=== PATIENT | male | born 1975 ===

== ENCOUNTER 2020-06-15 10:59 | Outpatient (NON) | payer OTHER, SELFPAY ==
[2020-06-16 22:35] LABS: SARS-CoV-2 RNA PCR Positive
== END 2020-06-15 11:00 ==
LOC: ANHCOVIDDT 11:02
PROVIDERS: Visit Provider Student in an Organized Health Care Education/Training Program
DX: U07.1 COVID-19 (principal)
CPT/HCPCS: 87635; C9803; U0003